=== PATIENT | female | born 1985 | race Caucasian/White ===

== ENCOUNTER → 2019-08-02 | Outpatient (CLI) | payer OTHER ==
--- NOTE | 2019-08-02 10:47 | US ---
EXAMINATION TYPE: Transabdominal DATE OF EXAM: 08/02/2019 9:55 AM COMPARISON: NONE CLINICAL HISTORY: Z36 confirm dates. Dates, no previous ultrasound EXAM PERFORMED: Transabdominal (TA) EXAM MEASUREMENTS: GESTATIONAL AGE / DATING Dates by LMP: (11 weeks/6 days) EDC: 02/15/2020 Dates by Current Scan for: (12 weeks/0 days) EDC: 02/14/2020 MATERNAL ANATOMY Uterus: 13.5 x 9.4 x 6.6 cm Right Ovary: 2.6 x 1.9 x 1.9 cm Left Ovary: 3.0 x 1.9 x 1.6 cm Post CDS / Adnexa: No free fluid Presence of free fluid: no Presence of corpus luteal cyst: no Presence of subchorionic bleed: no GESTATION / SURVEY CRL: 5.4 cm (12 weeks/0 days) MSD: Seen, not measured Yolk Sac (normal less than 6mm): Not visualized Heart Rate: 166 bpm Rhythm: Normal IUP: Viable IUP Date of LMP: 05/11/2019, G1 Beta HcG (if available): Not available at this time Single live IUP measuring 12 weeks 0 days IMPRESSION: Single live intrauterine with a current sonographic age of 12 weeks and 0 days and estimated date of delivery of 02/14/2020, concordant with menstrual age.
== END | disposition home or self-care (01) ==
LOC: RADUSWWP 09:39
PROVIDERS: ATTEND Obstetrics & Gynecology
DX: Z36.89 Encounter for other specified antenatal screening (principal)
CPT/HCPCS: 76801

== ENCOUNTER 2020-02-08 10:01 | Inpatient (IN) | payer OTHER ==
[2020-02-07 13:45] VITALS: BMI 30.1
--- NOTE | 2020-02-07 18:40 | P.HPOB ---
History of Present Illness H&P Date: 02/07/20 Chief Complaint: Scheduled primary section, macrosomia This is a 34 y.o. female, 1, para 0, with an estimated date of confinement of 02/15/2020, estimated gestational age of 39 weeks, who presents for primary low transverse section due to macrosomia. Her US on 02/06/2020 showed estimated weight of 9#3oz (greater than 90th percentile). She was counselled on risk of possible shoulder dystocia and wishes to proceed with primary section. labs: Hepatitis B surface antigen-neg RPR-NR Rubella-immune Blood type-B+ Antibody screen-neg HIV-NR Hemoglobin-11.9 Random glucose-86 GC/trich-neg Chlamydia-positive, ESTUARDO-neg US-EIF noted, seen at [facility] GBS-neg 1 hr. GTT-150 3 hr. GTT-1 hr. value high, all others normal OB Hx: . Hx 2 adopted girls. Firmware Developer Hx: Hx of chlamydia treated early in . Social Hx: Single. Boyfriend. Works as a cashier greeter. Review of Systems Constitutional: Denies chills, Denies fever Eyes: denies blurred vision, denies pain Ears, nose, mouth and throat: Denies headache, Denies sore throat Cardiovascular: Denies chest pain, Denies shortness of breath Respiratory: Denies cough Gastrointestinal: Reports abdominal pain (irregular contractions) Genitourinary: Reports pelvic pain, Reports Musculoskeletal: Reports low back pain Integumentary: Denies pruritus, Denies rash Neurological: Denies numbness, Denies weakness Psychiatric: Denies anxiety, Denies depression Past Medical History Past Medical History: No Reported History History of Any Multi-Drug Resistant Organisms: None Reported Past Surgical History: No Surgical Hx Reported Additional Past Surgical History / Comment(s): EGD Past Anesthesia/Blood Transfusion Reactions: Motion Sickness Past Psychological History: No Psychological Hx Reported Smoking Status: Never smoker Past Alcohol Use History: None Reported Past Drug Use History: None Reported - Past Family History Mother Family Medical History: Cancer Additional Family Medical History / Comment(s): BREAST Medications and Allergies Home Medications Medication Instructions Recorded Confirmed Type Pnv,Calcium 72/Iron/Folic Acid 1 each PO DAILY 02/07/20 02/08/20 History [ Plus Tablet] Allergies Allergy/AdvReac Type Severity Reaction Status Date / Time No Known Allergies Allergy Verified 02/07/20 13:29 Exam Osteopathic Statement: *. No significant issues noted on an osteopathic structural exam other than those noted in the History and Physical/Consult. Intake and Output 02/07/20 02/07/20 02/07/20 06:59 14:59 22:59 Other: Weight 89.811 kg HEENT: within normal limits Heart: regular rate and rhythm Lungs: clear to auscultation bilaterally Abdomen: Cervix: 1 cm/60%/-2 heart tones: 120's by doppler Extremities: neg. Lauren's Results Result Diagrams: 02/08/20 10:20 Assessment and Plan (1) 39 weeks gestation of Current Visit: No Status: Acute Code(s): Z3A.39 - 39 WEEKS GESTATION OF SNOMED Code(s): 74798699 (2) Macrosomia Current Visit: No Status: Acute Code(s): P08.0 - EXCEPTIONALLY LARGE BABY SNOMED Code(s): 83968440 Plan: Proceed with primary low transverse section. I have discussed the risks, benefits, and alternative therapies for the above- mentioned procedure and for both sedation/anesthesia as well as necessary blood products administration, if indicated, as they pertain to this patient. The patient has indicated her understanding and acceptance of the risks and procedures discussed.
[2020-02-08] MEDS ORDERED: CITRIC ACID-SODIUM CITRATE 15 ML CUP PO ONE (10:03)
[2020-02-08] MEDS ORDERED: LIDOCAINE 1% (10MG/ML) FOR IV START INTRADERMA PRN (10:03)
[2020-02-08] MEDS ORDERED: LACTATED RINGERS 1,000 ML IV ONE (10:03)
[2020-02-08] MEDS: LACTATED RINGERS 1,000 ML IV SCH ×3 (10:36→17:31)
[2020-02-08 10:49] LABS: Basophils % (A) 0 %; Eosinophils # (A) 0.1 k/uL (0-0.7); Eosinophils % (A) 1 %; HCT 36.5 % (34.0-46.0); HGB 11.7 gm/dL (11.4-16.0); Lymphocytes # (A) 1.8 k/uL (1.0-4.8); Lymphocytes % (A) 23 %; MCH 30.6 pg (25.0-35.0); MCV 95.7 fL (80.0-100.0); Mean Platelet Volume 12.8; Monocytes # (A) 0.5 k/uL (0-1.0); Monocytes % (A) 7 %; Neutrophils # (A) 4.8 k/uL (1.3-7.7); Neutrophils % (A) 64 %; Platelet Count 166 k/uL (150-450); RBC 3.81 m/uL (3.80-5.40); RDW 13.1 % (11.5-15.5); WBC 7.6 k/uL (3.8-10.6)
[2020-02-08 11:05] LABS: Large Platelets Present
[2020-02-08] MEDS ORDERED: KETOROLAC 30 MG/ML 1 ML VIAL ONE (12:24)
[2020-02-08] MEDS ORDERED: OXYTOCIN 10 UNIT/ML 1 ML VIAL ONE (12:24)
[2020-02-08] MEDS ORDERED: NALBUPHINE 10 MG/ML (1 ML AMP) ONE (12:24)
[2020-02-08] MEDS ORDERED: ONDANSETRON 4 MG/2 ML VIAL ONE (12:24)
[2020-02-08] MEDS ORDERED: DEXAMETHASONE SOD PHOS (MDV) 100 MG/10 ML VIAL ONE (12:24)
[2020-02-08] MEDS ORDERED: fentaNYL (PF) 50 MCG/ML 2 ML AMP ONE (12:24)
[2020-02-08] MEDS ORDERED: KETOROLAC 30 MG/ML 1 ML VIAL IVP PRN (13:06)
[2020-02-08] MEDS ORDERED: ONDANSETRON 4 MG/2 ML VIAL IVP PRN ×2 (13:06→15:27)
[2020-02-08] MEDS ORDERED: NALOXONE 0.4 MG/ML 1 ML VIAL IV PRN ×2 (13:06→15:27)
[2020-02-08] MEDS ORDERED: diphenhydrAMINE 50 MG/ML 1 ML VIAL IVP PRN ×3 (13:06→15:27)
[2020-02-08] MEDS ORDERED: HYDROmorphone 0.5 MG/0.5 ML SYRINGE IVP PRN (13:06)
--- NOTE | 2020-02-08 13:40 | P.OP ---
Date of Procedure: 02/08/20 Preoperative Diagnosis: 1. Intrauterine at 39-0/7 weeks. 2. macrosomia. Postoperative Diagnosis: Same Plus large left ovarian solid mass Procedure(s) Performed: Primary low transverse section Left oophorectomy Anesthesia: spinal (Duramorph) Surgeon: Heike Enriquez Graphics Production Specialist #1: Ronn Bettencourt Estimated Blood Loss (ml): 500 Pathology: other (Left ovary) Condition: stable Disposition: floor Indications for Procedure: This is a 34-year-old female 1 para 0 at 39-0/7 weeks who presents for scheduled primary section secondary to macrosomia. I have discussed the risks, benefits, and alternative therapies for the above- mentioned procedure and for both sedation/anesthesia as well as necessary blood products administration, if indicated, as they pertain to this patient. The patient has indicated her understanding and acceptance of the risks and procedures discussed. Operative Findings: A viable male is noted in the vertex presentation with scores of 9 at 1 minute and 9 at 5 minutes and weight is 8 lbs. 7 oz. Left ovary does have a very large solid mass noted at approximate 5-6 cm. Right ovary appears normal both tubes appear normal. Description of Procedure: The patient is taken to the operating room where she is placed in the dorsal supine position with leftward tilt after spinal Duramorph anesthesia is given. She is prepped and draped in the normal sterile fashion. Skin was tested and found to be adequately anesthetized. A Pfannenstiel skin incision was made with a scalpel. A second knife was used to carry the incision down to the underlying layer of fascia. The fascia was nicked in the midline with a scalpel and then extended laterally bilaterally with Deras scissors. The anterior lip of the fascia was grasped with 2 Ondina clamps and then dissected off the underlying rectus muscle in the midline with Deras scissors. The inferior aspect of the fascial incision was grasped with 2 Ondina clamps and dissected off the underlying rectus muscle and the midline with Deras scissors. Next the peritoneum layer was tented up with 2 hemostats and then entered sharply with the scalpel. The incision is extended superiorly and inferiorly with Metzenbaum scissors. Next a DeLee retractor is placed. The vesicouterine peritoneum is entered sharply with Metzenbaum scissors and extended laterally bilaterally with Metzenbaum scissors and then the bladder flap is pushed inferiorly. The lower uterine segment is incised in transverse fashion with the scalpel and then bluntly entered with a hemostat. Clear fluid is noted. The incision was then extended laterally bilaterally with 2 fingers. Next the infant's head is delivered through the incision with the help of 1 pull from a vacuum. Nose and mouth are bulb suctioned. The remainder of the is easily delivered and placed on mother's abdomen. Cord is clamped and cut. is taken to warmer by nursing staff. Uterine fundus is gently massaged and placenta is delivered manually. Uterus is exteriorized and cleared of all clots and debris. Uterine incision is closed with 0 Vicryl suture in a running locked fashion. A second layer of 0 Vicryl suture is used in a running fashion for hemostasis. Once adequate hemostasis as assured, the vesicouterine peritoneum is reapproximated with 2-0 Vicryl suture in a running fashion. Posterior cul-de-sac is suctioned of all clots and debris. At this time a large firm mass is noted on the left ovary. The right ovary appears normal. The patient was questioned regarding removal of the left ovary. We were able to lower the drapes so that she could see the left ovary and did give consent to remove her left ovary verbally. Hemostats were used to clamp across the uterine ovarian ligament and mesosalpinx. Deras scissors were used to remove the specimen. The pedicles were then sutured with 0 Vicryl suture in Elkin transfixion stitches and then the entire pedicle was free tied with an 0 Vicryl stitch. Excellent hemostasis was noted. Uterus is returned to the abdomen. Incision is noted to be hemostatic. Peritoneal layer is closed with 0 Vicryl suture in a running fashion. Muscle layer is reapproximated with 0 Vicryl suture in interrupted fashion. Fascia layer is then closed with 0 PDS suture with 2 sutures meeting in the midline and the knots buried in either side and in the midline. The subcutaneous tissue was then closed with 2-0 Vicryl suture. Skin layer was then closed with jonny. All sponge and needle counts are correct. The patient is taken to recovery room in stable condition.
[2020-02-08] MEDS ORDERED: HYDROcodone/APAP 5-325MG 1 EACH TAB PO PRN (15:27)
[2020-02-08] MEDS ORDERED: METOCLOPRAMIDE 5 MG/ML 2 ML VIAL IVP PRN (15:27)
[2020-02-08] MEDS ORDERED: HYDROcodone/APAP 7.5-325MG 1 EACH TAB PO PRN (15:27)
[2020-02-08] MEDS ORDERED: diphenhydrAMINE 50 MG CAP PO PRN (15:27)
[2020-02-08] MEDS ORDERED: OXYTOCIN 20 UNITS/1000 ML NS 1,000 ML IV SCH (15:27)
[2020-02-08] MEDS ORDERED: diphenhydrAMINE 25 MG CAP PO PRN (15:27)
[2020-02-08] MEDS ORDERED: LANOLIN CREAM 5 GM TUBE TOPICAL PRN (15:27)
[2020-02-08] MEDS ORDERED: ZOLPIDEM 5 MG TAB PO PRN (15:27)
[2020-02-08] MEDS ORDERED: ACETAMINOPHEN TAB 325 MG TAB PO PRN (15:27)
[2020-02-08] MEDS ORDERED: SIMETHICONE 80 MG CHEWABLE PO PRN (15:27)
[2020-02-08] MEDS: SENNOSIDES-DOCUSATE SODIUM 1 EACH TAB PO SCH (20:24)
[2020-02-08] MEDS: KETOROLAC 30 MG/ML 1 ML VIAL IVP PRN (23:11)
[2020-02-09] MEDS: LACTATED RINGERS 1,000 ML IV SCH (03:50)
--- NOTE | 2020-02-09 07:07 | P.PN ---
Progress Note - Text Progress Note Date: 02/09/20 Postoperative day 1 status post section under spinal anesthesia, and i ntrathecal morphine given for postoperative analgesia, patient doing well, there is no anesthesia related complications, Patient had no headache, vital signs stable , Assessment and plan= postop day 1 status post , doing well there is no anesthesia related complication.
[2020-02-09] MEDS: KETOROLAC 30 MG/ML 1 ML VIAL IVP PRN (07:31)
[2020-02-09] MEDS: SENNOSIDES-DOCUSATE SODIUM 1 EACH TAB PO SCH ×2 (07:33→20:35)
[2020-02-09 08:05] LABS: Basophils % (A) 0 %; Eosinophils % (A) 0 %; HCT 32.9 % (34.0-46.0); HGB 10.3 gm/dL (11.4-16.0); Lymphocytes # (A) 1.8 k/uL (1.0-4.8); Lymphocytes % (A) 21 %; MCH 30.4 pg (25.0-35.0); MCHC 31.4 g/dL (31.0-37.0); MCV 96.7 fL (80.0-100.0); Mean Platelet Volume 12.3; Monocytes # (A) 0.5 k/uL (0-1.0); Monocytes % (A) 6 %; Neutrophils # (A) 6.3 k/uL (1.3-7.7); Neutrophils % (A) 71 %; Platelet Count 157 k/uL (150-450); WBC 8.9 k/uL (3.8-10.6)
--- NOTE | 2020-02-09 09:19 | P.PNOBGPC ---
Subjective - Subjective Principal diagnosis: Status post primary section with left oophorectomy POD #1 Interval history: Patient is doing well. Her pain is fairly well controlled. She is passing flatus. She is tolerating regular diet. She is breast-feeding. Lochia is decreasing. Patient reports: Reports appetite normal, Reports voiding normally, Reports pain well controlled, Reports ambulating normally [place]: doing well, nursing well Objective - Vital Signs Latest vital signs: Vital Signs Temp Pulse Resp BP Pulse Ox 02/09/20 08:00 97.9 F 51 L 16 117/76 98 02/09/20 03:57 98.0 F 65 16 109/68 98 02/08/20 23:24 97.5 F L 51 L 16 110/62 97 02/08/20 22:00 16 97 02/08/20 20:00 97.8 F 67 16 110/60 96 02/08/20 18:06 98 02/08/20 18:00 17 02/08/20 16:06 60 17 02/08/20 15:23 98.1 F 59 L 17 113/65 02/08/20 14:48 98.2 F 63 17 119/59 98 02/08/20 14:23 98.0 F 66 17 114/68 99 02/08/20 14:07 70 18 111/58 02/08/20 14:03 17 98 02/08/20 13:53 80 18 127/62 98 02/08/20 13:38 74 18 118/63 98 02/08/20 13:23 97.8 F 88 18 115/75 99 02/08/20 10:02 97.5 F L 82 16 114/80 100 Intake and Output 02/08/20 02/09/20 02/09/20 22:59 06:59 14:59 Output Total 425 250 Balance -425 -250 Output: Urine 425 250 Uretheral (Schumacher) 425 Other: # Voids 1 - Exam Extremities: Present: normal, edema (Trace). Absent: tenderness Abdomen: Present: normal appearance, soft. Absent: distention, tenderness Incision: Present: normal, dry, intact. Absent: erythematous Uterus: Present: normal, firm. Absent: tenderness - Labs Labs: Abnormal Lab Results - Last 24 Hours (Table) 02/09/20 Range/Units 06:48 RBC 3.40 L (3.80-5.40) m/uL Hgb 10.3 L (11.4-16.0) gm/dL Hct 32.9 L (34.0-46.0) % Assessment and Plan Assessment: Status post primary low transverse section with left oophorectomy postoperative day #1 (1) 39 weeks gestation of Current Visit: No Status: Acute Code(s): Z3A.39 - 39 WEEKS GESTATION OF SNOMED Code(s): 11953934 (2) Macrosomia Current Visit: No Status: Acute Code(s): P08.0 - EXCEPTIONALLY LARGE BABY SNOMED Code(s): 55711807 Plan: Continue with postoperative and care. Encouraged ambulation. Switched oral pain medication today. Dr. Salinas will be covering for me this weekend.
[2020-02-09 10:25] LABS: Large Platelets Present
[2020-02-09] MEDS: IBUPROFEN 600 MG TAB PO PRN ×2 (13:42→20:35)
[2020-02-10] MEDS: IBUPROFEN 600 MG TAB PO PRN ×2 (05:07→11:56)
[2020-02-10] MEDS: SENNOSIDES-DOCUSATE SODIUM 1 EACH TAB PO SCH (08:27)
--- NOTE | 2020-02-10 09:29 | P.DS ---
Providers Date of admission: 02/08/20 10:01 Expected date of discharge: 02/10/20 Attending physician: Heike Enriquez Primary care physician: Stated None - Discharge Diagnosis(es) (1) Status post primary low transverse section Current Visit: Yes Status: Acute Hospital Course: Patient presented for primary low transverse . She underwent this procedure without complication. Postoperatively her course has been uncomplicated. She denies nausea, vomiting, chest pain, shortness of breath or calf pain. Her incision is clean, dry, intact with jonny. She'll be discharged home postoperative day #2 in stable condition to follow-up with Dr. Enriquez in 1-2 weeks. Plan - Discharge Summary Discharge Rx Participant: Yes New Discharge Prescriptions: New Ibuprofen [Motrin] 600 mg PO Q6HR PRN #60 tab PRN Reason: Mild Pain Or Fever >= 100.5 HYDROcodone/APAP 5-325MG [[place] 5-325] 1 each PO Q4HR PRN #18 tab PRN Reason: Moderate Pain Continue Pnv,Calcium 72/Iron/Folic Acid [ Plus Tablet] 1 each PO DAILY Discharge Medication List Pnv,Calcium 72/Iron/Folic Acid [ Plus Tablet] 1 each PO DAILY 02/07/20 [History] HYDROcodone/APAP 5-325MG [[place] 5-325] 1 each PO Q4HR PRN #18 tab 02/09/20 [Rx] Ibuprofen [Motrin] 600 mg PO Q6HR PRN #60 tab 02/09/20 [Rx] Follow up Appointment(s)/Referral(s): Heike Enriquez DO [Doctor of Osteopathic Medicine] - 2 Weeks Activity/Diet/Wound Care/Special Instructions: Instructions 1. Do not begin any exercise program for 3 weeks. 2. Do not resume sexual relations for 3 weeks or longer if uncomfortable. 3. You may take tub baths or showers at any time. 4. You may use tampons if desired after 3 weeks. 5. Keep the area of episiotomy (stitches) clean and dry. 6. If you are not nursing, wear a good fitting, supportive bra during the day and limit fluid intake for at least 1 week to prevent breast engorgement. 7. Call the office, [phone], within the next week to make appointment for your 6 week checkup if it has not already been made. 8. Report any of the following occurrences to the doctor promptly: a. Heavy, excessive bleeding b. Chills, fever c. Burning or frequency of urination d. Pain or redness and breasts if nursing e. Increasing pain or swelling in episiotomy (stitches). In addition to the above instructions, the following additional should be followed: 1. No heavy lifting or straining (exercising) until after 6 week checkup. 2. Keep abdominal incision clean and dry: You may wear a dressing if more comfortable. 3. Make office appointment for 10 days after going home or as instructed by her doctor. Discharge Disposition: HOME SELF-CARE
[2020-02-10 12:12] VITALS: RESP 18
[2020-02-10 17:18] VITALS: BP 113/68; PULSE 65; TEMP 98.6
== END 2020-02-10 17:44 | disposition home or self-care (01) | DRG 788 ==
LOC: 4FBP 10:01
PROVIDERS: ADMIT Obstetrics & Gynecology; ATTEND Obstetrics & Gynecology
PROC: 0UT10ZZ Resection of Left Ovary, Open Approach (ICD-10-PCS; principal; 2020-02-08 12:00)
PROC: 10D00Z1 Extraction of Products of Conception, Low, Open Approach (ICD-10-PCS; principal; 2020-02-08 12:00)
DX: O36.63X0 Maternal care for excessive fetal growth, third trimester, not applicable or unspecified (principal); Z37.0 Single live birth; Z3A.39 39 weeks gestation of pregnancy; Z80.3 Family history of malignant neoplasm of breast
CPT/HCPCS: 85025; 86850; 86900; 86901

== ENCOUNTER 2020-10-12 15:02 | Emergency (ER) | payer OTHER ==
[2020-10-12 15:07] VITALS: TEMP 98.9
[2020-10-12 15:47] LABS: Basophils % (A) 1 %; Eosinophils # (A) 0.2 k/uL (0-0.7); Eosinophils % (A) 2 %; HCT 39.2 % (34.0-46.0); HGB 13.7 gm/dL (11.4-16.0); Lymphocytes # (A) 1.6 k/uL (1.0-4.8); Lymphocytes % (A) 21 %; MCHC 34.9 g/dL (31.0-37.0); MCV 91.7 fL (80.0-100.0); Mean Platelet Volume 8.5; Monocytes # (A) 0.5 k/uL (0-1.0); Monocytes % (A) 6 %; Neutrophils # (A) 5.5 k/uL (1.3-7.7); Neutrophils % (A) 70 %; Platelet Count 207 k/uL (150-450); RBC 4.27 m/uL (3.80-5.40); WBC 7.9 k/uL (3.8-10.6)
[2020-10-12 15:48] LABS: Appearance,Urine Clear (Clear); Bilirubin,Urine Negative (Negative); Blood,Urine Negative (Negative); Color,Urine Yellow; Glucose,Urine (UA) Negative (Negative); Ketones,Urine Negative (Negative); Leukocyte Esterase,Urine Negative (Negative); Nitrite,Urine Negative (Negative); Protein,Urine Trace (Negative); Urobilinogen,Urine <2.0 mg/dL (<2.0)
--- NOTE | 2020-10-12 15:49 | ED ---
Female Urogenital HPI - General Chief complaint: Vaginal Bleeding Stated complaint: 9 wks preg,vaginal bleeding Time Seen by Provider: 10/12/20 15:17 Source: patient Mode of arrival: ambulatory Limitations: no limitations - History of Present Illness Initial comments: Patient is a 35-year-old female presenting to the emergency Department with complaints of vaginal spotting for the past week as well as left-sided abdominal pain. She is currently 9-10 weeks , . Her DORR OPERATOR is Dr. Enriquez. She states that she has been spotting over the past week, thinks it is a darker color, but when she wipes she does notice a little bit of blood. She is been having no clots. She denies any lower abdominal pain but states that she has been having these intermittent left sided sharp pains that last for approximately 1 minute and then go away. She denies history of kidney stones. She denies any hematuria or dysuria. She denies any fever or chills, no nausea or vomiting. She has no further complaints at this time. Upon arrival to the ER, her vitals are stable. - Related Data Home Medications Medication Instructions Recorded Confirmed No Known Home Medications 10/12/20 10/12/20 Allergies Allergy/AdvReac Type Severity Reaction Status Date / Time No Known Allergies Allergy Verified 10/12/20 17:09 Review of Systems ROS Statement: Those systems with pertinent positive or pertinent negative responses have been documented in the HPI. ROS Other: All systems not noted in ROS Statement are negative. Past Medical History Past Medical History: No Reported History History of Any Multi-Drug Resistant Organisms: None Reported Past Surgical History: No Surgical Hx Reported Additional Past Surgical History / Comment(s): EGD Past Anesthesia/Blood Transfusion Reactions: Motion Sickness Past Psychological History: No Psychological Hx Reported Smoking Status: Never smoker Past Alcohol Use History: None Reported Past Drug Use History: None Reported - Past Family History Mother Family Medical History: Cancer Additional Family Medical History / Comment(s): BREAST General Exam - General Exam Comments Initial Comments: GENERAL: Patient is well-developed and well-nourished. Patient is nontoxic and in no acute distress. HEAD: Atraumatic, normocephalic. EYES: Pupils equal round and reactive to light, extraocular movements intact, sclera anicteric, conjunctiva are normal. Eyelids were unremarkable. ENT: TMs normal, nares patent, oropharynx clear without exudates. Moist mucous membranes. NECK: Normal range of motion, supple without lymphadenopathy or JVD. LUNGS: Unlabored respirations. Breath sounds clear to auscultation bilaterally and equal. No wheezes rales or rhonchi. HEART: Regular rate and rhythm without murmurs, rubs or gallops. ABDOMEN: Soft, nontender, normoactive bowel sounds. No guarding, no rebound. No masses appreciated. MUSCULOSKELETAL: Normal extremities with adequate strength and normal range of motion, no pitting or edema. No clubbing or cyanosis. NEUROLOGICAL: Patient is alert and oriented x 3. Motor and sensory are also intact. Cranial nerves II through XII grossly intact. Symmetrical smile. Normal speech, normal gait. PSYCH: Normal mood, normal affect. SKIN: Warm, Dry, normal turgor, no rashes or lesions noted. Limitations: no limitations External exam: Present: normal external exam Speculum exam: Present: cervical discharge (Very mild whitish discharge, no erythema, no bleeding). Absent: vaginal bleeding, foreign body By manual exam: Present: normal by manual exam Course Vital Signs 10/12/20 10/12/20 15:03 17:29 Temperature 98.9 F Pulse Rate 73 80 Respiratory 20 16 Rate Blood Pressure 115/75 116/71 O2 Sat by Pulse 100 100 Oximetry Medical Decision Making - Medical Decision Making Patient is a 35-year-old female, currently 9-10 weeks , presenting for vaginal spotting is 1 week. She's also been having intermittent left-sided sharp pains. No lower abdominal pain. , DORR OPERATOR is Dr. Enriquez. Labs show no acute process, kidney function is stable, hCG Quant is 148,000, urine shows no evidence of bacteria, rapid trichomoniasis is negative. Genital culture is still pending. Blood type is B+. Ultrasound shows a single live IUP with estimated gestational age of 11 weeks and 1 day. No other abnormalities were seen. Patient has been resting completely ER. I did discuss these findings with her. She is stable for discharge. She can follow up with Dr. Enriquez. She is in agreement with this plan of care. Return parameters were discussed with the patient she verbalized understanding. Case discussed with Dr. Winslow. - Lab Data Result diagrams: 10/12/20 15:35 10/12/20 15:39 Lab Results 10/12/20 10/12/20 10/12/20 Range/Units 15:35 15:35 15:39 WBC 7.9 (3.8-10.6) k/uL RBC 4.27 (3.80-5.40) m/uL Hgb 13.7 (11.4-16.0) gm/dL Hct 39.2 (34.0-46.0) % MCV 91.7 (80.0-100.0) fL MCH 32.0 (25.0-35.0) pg MCHC 34.9 (31.0-37.0) g/dL RDW 12.0 (11.5-15.5) % Plt Count 207 (150-450) k/uL MPV 8.5 Neutrophils % 70 % Lymphocytes % 21 % Monocytes % 6 % Eosinophils % 2 % Basophils % 1 % Neutrophils # 5.5 (1.3-7.7) k/uL Lymphocytes # 1.6 (1.0-4.8) k/uL Monocytes # 0.5 (0-1.0) k/uL Eosinophils # 0.2 (0-0.7) k/uL Basophils # 0.0 (0-0.2) k/uL Sodium (137-145) mmol/L Potassium (3.5-5.1) mmol/L Chloride (98-107) mmol/L Carbon Dioxide (22-30) mmol/L Anion Gap mmol/L BUN (7-17) mg/dL Creatinine (0.52-1.04) mg/dL Est GFR (CKD-EPI)AfAm (>60 ml/min/1.73 sqM) Est GFR (CKD-EPI)NonAf (>60 ml/min/1.73 sqM) Glucose (74-99) mg/dL Calcium (8.4-10.2) mg/dL Total Bilirubin (0.2-1.3) mg/dL AST (14-36) U/L ALT (4-34) U/L Alkaline Phosphatase (38-126) U/L Total Protein (6.3-8.2) g/dL Albumin (3.5-5.0) g/dL HCG, Quant mIU/mL Urine Color Yellow Urine Appearance Clear (Clear) Urine pH 6.0 (5.0-8.0) Ur Specific [place] 1.030 (1.001-1.035) Urine Protein Trace H (Negative) Urine Glucose (UA) Negative (Negative) Urine Ketones Negative (Negative) Urine Blood Negative (Negative) Urine Nitrite Negative (Negative) Urine Bilirubin Negative (Negative) Urine Urobilinogen <2.0 (<2.0) mg/dL Ur Leukocyte Esterase Negative (Negative) Trichomonas Ag (Rapid) (Negative) Blood Type B Positive Blood Type Recheck B Pos Bld Type Recheck Status No 10/12/20 10/12/20 Range/Units 15:39 15:39 WBC (3.8-10.6) k/uL RBC (3.80-5.40) m/uL Hgb (11.4-16.0) gm/dL Hct (34.0-46.0) % MCV (80.0-100.0) fL MCH (25.0-35.0) pg MCHC (31.0-37.0) g/dL RDW (11.5-15.5) % Plt Count (150-450) k/uL MPV Neutrophils % % Lymphocytes % % Monocytes % % Eosinophils % % Basophils % % Neutrophils # (1.3-7.7) k/uL Lymphocytes # (1.0-4.8) k/uL Monocytes # (0-1.0) k/uL Eosinophils # (0-0.7) k/uL Basophils # (0-0.2) k/uL Sodium 136 L (137-145) mmol/L Potassium 4.1 (3.5-5.1) mmol/L Chloride 106 (98-107) mmol/L Carbon Dioxide 24 (22-30) mmol/L Anion Gap 6 mmol/L BUN 9 (7-17) mg/dL Creatinine 0.48 L (0.52-1.04) mg/dL Est GFR (CKD-EPI)AfAm >90 (>60 ml/min/1.73 sqM) Est GFR (CKD-EPI)NonAf >90 (>60 ml/min/1.73 sqM) Glucose 90 (74-99) mg/dL Calcium 9.6 (8.4-10.2) mg/dL Total Bilirubin 0.4 (0.2-1.3) mg/dL AST 18 (14-36) U/L ALT 14 (4-34) U/L Alkaline Phosphatase 58 (38-126) U/L Total Protein 7.1 (6.3-8.2) g/dL Albumin 4.2 (3.5-5.0) g/dL HCG, Quant 370497.0 mIU/mL Urine Color Urine Appearance (Clear) Urine pH (5.0-8.0) Ur Specific [place] (1.001-1.035) Urine Protein (Negative) Urine Glucose (UA) (Negative) Urine Ketones (Negative) Urine Blood (Negative) Urine Nitrite (Negative) Urine Bilirubin (Negative) Urine Urobilinogen (<2.0) mg/dL Ur Leukocyte Esterase (Negative) Trichomonas Ag (Rapid) Negative (Negative) Blood Type Blood Type Recheck Bld Type Recheck Status Disposition Clinical Impression: Vaginal bleeding during Disposition: HOME SELF-CARE Condition: Stable Instructions (If sedation given, give patient instructions): Non-Threatening First Trimester Vaginal Bleed (ED) Additional Instructions: Please return to the Emergency Department if symptoms worsen or any other concerns. Follow-up with your DORR OPERATOR as discussed. Is patient prescribed a controlled substance at d/c from ED?: No Referrals: None,Stated [Primary Care Provider] - 1-2 days Heike Enriquez DO [Doctor of Osteopathic Medicine] - 1-2 days
[2020-10-12 15:58] LABS: ALT 14 U/L (4-34); AST 18 U/L (14-36); African American GFR (CKD) >90 (>60 ml/min/1.73 sqM); Albumin 4.2 g/dL (3.5-5.0); Alkaline Phosphatase 58 U/L (38-126); Anion Gap 6 mmol/L; Blood Urea Nitrogen 9 mg/dL (7-17); Calcium 9.6 mg/dL (8.4-10.2); Carbon Dioxide 24 mmol/L (22-30); Chloride 106 mmol/L (98-107); Glucose 90 mg/dL (74-99); Non-African American GFR(CKD) >90 (>60 ml/min/1.73 sqM); Potassium 4.1 mmol/L (3.5-5.1); Sodium 136 mmol/L (137-145); Total Bilirubin 0.4 mg/dL (0.2-1.3); Total Protein 7.1 g/dL (6.3-8.2)
--- NOTE | 2020-10-12 17:20 | US ---
EXAMINATION TYPE: Transabdominal DATE OF EXAM: 10/12/2020 4:43 PM COMPARISON: NONE CLINICAL HISTORY: spotting, pain. EXAM PERFORMED: Transabdominal (TA) EXAM MEASUREMENTS: GESTATIONAL AGE / DATING Physician Established: Not yet established Dates by LMP: 07/29/2020 (10 weeks/5 days) EDC: 05/05/2021 Dates by First Scan: No previous this is first scan Dates by Current Scan for: (11 weeks/1 days) EDC: 05/02/2021 MATERNAL ANATOMY Uterus: 10.3 x 7.3 x 8.9 cm Right Ovary: 3.9 x 2.1 x 4.3 cm Left Ovary: surgically absent per patient history of oopherectomy. Post CDS / Adnexa: wnl Presence of free fluid: none = GESTATION / SURVEY CRL: 4.4 cm (11 weeks/1 days) Yolk Sac (normal less than 6mm): not seen Heart Rate: 160 bpm Rhythm: Normal IUP: Viable IUP Date of LMP: 07/29/2020 Beta HcG (if available): not available Viable IUP that correlates with patient's LMP. Patient states history of prior oophorectomy during C section, unsure which one. Normal right ovary seen during exam, presuming left ovary removed. IMPRESSION: Single live intrauterine with estimated gestational age of 11 weeks 1 day and GERONIMO of 2020.
[2020-10-12 17:30] VITALS: BP 116/71; PULSE 80; RESP 16
== END 2020-10-12 17:30 | disposition home or self-care (01) ==
LOC: EC 15:02
DX: O20.9 Hemorrhage in early pregnancy, unspecified (principal); Z3A.11 11 weeks gestation of pregnancy; Z90.721 Acquired absence of ovaries, unilateral
CPT/HCPCS: 36415; 76801; 80053; 81003; 84702; 85025; 86900; 86901; 87070; 87491; 87591; 87808; 99284

== ENCOUNTER 2021-04-28 06:12 | Inpatient (IN) | payer OTHER ==
[2021-04-23 13:29] VITALS: BMI 31.0
--- NOTE | 2021-04-27 19:54 | P.HPOB ---
History of Present Illness H&P Date: 04/27/21 Chief Complaint: Scheduled repeat section This is a 35 y.o. female, 2, para 1, with an estimated date of confinement of 05/05/2021, estimated gestational age of 39 weeks, who presents for scheduled repeat section. She has good movement and irregular contractions. labs: Hepatitis B surface antigen-neg RPR-NR Rubella-immune Blood type-B+ Antibody screen-neg HIV-NR Hemoglobin-11.5 Toxoplasma-neg Random glucose-83 1 hr. GTT-184; 3 hr. GTT-normal GBS-positive OB Hx: . History of 1 previous (elective). Loss Control Representative Hx: Hx of chlamydia, treated. Social Hx: Single. Works full-time as service bar cashier. Review of Systems Constitutional: Denies chills, Denies fever Eyes: denies blurred vision, denies pain Ears, nose, mouth and throat: Denies headache, Denies sore throat Cardiovascular: Denies chest pain, Denies shortness of breath Respiratory: Denies cough Gastrointestinal: Reports abdominal pain (irregular ctxs) Genitourinary: Reports pelvic pain, Reports Musculoskeletal: Reports low back pain Integumentary: Denies pruritus, Denies rash Neurological: Denies numbness, Denies weakness Psychiatric: Denies anxiety, Denies depression Past Medical History Past Medical History: No Reported History History of Any Multi-Drug Resistant Organisms: None Reported Past Surgical History: Section Additional Past Surgical History / Comment(s): EGD Past Anesthesia/Blood Transfusion Reactions: Motion Sickness Past Psychological History: No Psychological Hx Reported Smoking Status: Never smoker Past Alcohol Use History: None Reported Past Drug Use History: None Reported - Past Family History Mother Family Medical History: Cancer Additional Family Medical History / Comment(s): BREAST Medications and Allergies Home Medications Medication Instructions Recorded Confirmed Type Pnv No.95/Ferrous Fum/Folic AC 1 each PO DAILY 04/23/21 04/23/21 History [ Multivitamin Tablet] Allergies Allergy/AdvReac Type Severity Reaction Status Date / Time No Known Allergies Allergy Verified 04/23/21 13:29 Exam Osteopathic Statement: *. No significant issues noted on an osteopathic structural exam other than those noted in the History and Physical/Consult. HEENT: within normal limits Heart: regular rate and rhythm Lungs: clear to auscultation bilaterally Abdomen: Cervix: closed/60%/-2 heart tone: 130's by doppler Extremities: neg. Lauren's.
[2021-04-28] MEDS ORDERED: LIDOCAINE 1% (10MG/ML) FOR IV START INTRADERMA PRN (06:31)
[2021-04-28] MEDS ORDERED: CITRIC ACID-SODIUM CITRATE 15 ML CUP PO ONE (06:31)
[2021-04-28] MEDS ORDERED: LACTATED RINGERS 1,000 ML IV ONE (06:31)
[2021-04-28 06:54] LABS: Basophils % (A) 0 %; Eosinophils # (A) 0.1 k/uL (0-0.7); Eosinophils % (A) 2 %; HCT 34.3 % (34.0-46.0); HGB 11.9 gm/dL (11.4-16.0); Lymphocytes # (A) 2.4 k/uL (1.0-4.8); Lymphocytes % (A) 28 %; MCH 30.8 pg (25.0-35.0); MCHC 34.7 g/dL (31.0-37.0); MCV 88.8 fL (80.0-100.0); Mean Platelet Volume 11.9; Monocytes # (A) 0.5 k/uL (0-1.0); Monocytes % (A) 6 %; Neutrophils # (A) 5.2 k/uL (1.3-7.7); Neutrophils % (A) 61 %; Platelet Count 214 k/uL (150-450); RBC 3.86 m/uL (3.80-5.40); RDW 14.5 % (11.5-15.5); WBC 8.6 k/uL (3.8-10.6)
--- NOTE | 2021-04-28 08:36 | P.OP ---
Date of Procedure: 04/28/21 Preoperative Diagnosis: 1. Intrauterine at 39-0/7 weeks. 2. History of previous section. Postoperative Diagnosis: Same Procedure(s) Performed: Repeat low transverse section Anesthesia: spinal (Duramorph) Surgeon: Heike Enriquez Training Administrator #1: Arielle Salinas Estimated Blood Loss (ml): 500 Pathology: none sent Condition: stable Disposition: floor Indications for Procedure: This is a 35-year-old female 2 para 1 at 39-0/7 weeks who presents for scheduled repeat section. She admits to good movement. She denies any regular contractions. She declines vaginal after . I have discussed the risks, benefits, and alternative therapies for the above- mentioned procedure and for both sedation/anesthesia as well as necessary blood products administration, if indicated, as they pertain to this patient. The patient has indicated her understanding and acceptance of the risks and procedures discussed. Operative Findings: A viable female infant is noted in the vertex presentation with scores of 9 at 1 minute and 9 at 5 minutes and infant weight of 7 lbs. 6 oz. Normal uterus tubes and ovaries are noted. Description of Procedure: The patient is taken to the operating room where she is placed in the dorsal supine position with leftward tilt after spinal Duramorph anesthesia is given. She is prepped and draped in the normal sterile fashion. Skin was tested and found to be adequately anesthetized. A Pfannenstiel skin incision was made with a scalpel through the previous laparotomy scar. A second knife was used to carry the incision down to the underlying layer of fascia. The fascia was nicked in the midline with a scalpel and then extended laterally bilaterally with Deras scissors. The anterior lip of the fascia was grasped with 2 Ondina clamps and then dissected off the underlying rectus muscle in the midline with Deras scissors. The inferior aspect of the fascial incision was grasped with 2 Ondina clamps and dissected off the underlying rectus muscle and the midline with Deras scissors. Next the peritoneum layer was tented up with 2 hemostats and then entered sharply with the scalpel. The incision is extended superiorly and inferiorly with Metzenbaum scissors. Next a DeLee retractor is placed. The vesicouterine peritoneum is entered sharply with Metzenbaum scissors and extended laterally bilaterally with Metzenbaum scissors and then the bladder flap is pushed inferiorly. The lower uterine segment is incised in transverse fashion with the scalpel and then bluntly entered with a hemostat. Light m econium fluid is noted. The incision was then extended laterally bilaterally with 2 fingers. Next the 's head is delivered through the incision. Nose and mouth are bulb suctioned. The remainder of the is easily delivered and placed on mother's abdomen. Cord is clamped and cut. is taken to warmer by nursing staff. Uterine fundus is gently massaged and placenta is delivered manually. Uterus is exteriorized and cleared of all clots and debris. Uterine incision is closed with 0 Vicryl suture in a running locked fashion. A second layer of 0 Vicryl suture is used in a running fashion for hemostasis. Once adequate hemostasis as assured, the vesicouterine peritoneum is reapproximated with 2-0 Vicryl suture in a running fashion. Posterior cul-de-sac is suctioned of all clots and debris. Uterus is returned to the abdomen. Incision is noted to be hemostatic. Peritoneal layer is closed with 0 Vicryl suture in a running fashion. Muscle layer is reapproximated with 0 Vicryl suture in interrupted fashion. Fascia layer is then closed with 0 PDS suture with 2 sutures meeting in the midline and the knots buried in either side and in the midline. The subcutaneous tissue was then closed with 2-0 Vicryl suture. Skin layer was then closed with jonny. All sponge and needle counts are correct. The patient is taken to recovery room in stable condition.
[2021-04-28] MEDS ORDERED: LANOLIN CREAM 5 GM TUBE TOPICAL PRN (09:05)
[2021-04-28] MEDS ORDERED: diphenhydrAMINE 25 MG CAP PO PRN (09:05)
[2021-04-28] MEDS ORDERED: HYDROmorphone 0.2 MG/1 ML SYRINGE IVP PRN (09:05)
[2021-04-28] MEDS ORDERED: HYDROmorphone 1 MG/ML 1 ML SYRINGE IVP PRN (09:05)
[2021-04-28] MEDS ORDERED: diphenhydrAMINE 50 MG CAP PO PRN (09:05)
[2021-04-28] MEDS ORDERED: ZOLPIDEM 5 MG TAB PO PRN (09:05)
[2021-04-28] MEDS ORDERED: diphenhydrAMINE 50 MG/ML 1 ML VIAL IVP PRN ×2 (09:05)
[2021-04-28] MEDS ORDERED: METOCLOPRAMIDE 5 MG/ML 2 ML VIAL IVP PRN (09:05)
[2021-04-28] MEDS ORDERED: NALOXONE 0.4 MG/ML 1 ML VIAL IV PRN (09:05)
[2021-04-28] MEDS ORDERED: ONDANSETRON 4 MG/2 ML VIAL IVP PRN (09:05)
[2021-04-28] MEDS ORDERED: OXYTOCIN 30 UNITS/500 ML NS 30 UNIT in SALINE 1 500ML.BAG IV SCH (09:05)
[2021-04-28] MEDS: LACTATED RINGERS 1,000 ML IV SCH ×2 (09:12→18:06)
[2021-04-28] MEDS: SENNOSIDES-DOCUSATE SODIUM 1 EACH TAB PO SCH ×2 (10:16→19:43)
[2021-04-28] MEDS: ACETAMINOPHEN TAB 500 MG TAB PO SCH ×2 (12:34→18:06)
[2021-04-28] MEDS: KETOROLAC 15 MG/ML 1 ML VIAL IVP SCH (14:33)
[2021-04-28] MEDS: IBUPROFEN 600 MG TAB PO SCH ×2 (18:05→21:49)
[2021-04-29] MEDS: LACTATED RINGERS 1,000 ML IV SCH (00:27)
[2021-04-29] MEDS: ACETAMINOPHEN TAB 500 MG TAB PO SCH ×4 (00:27→17:06)
[2021-04-29] MEDS: KETOROLAC 15 MG/ML 1 ML VIAL IVP SCH ×2 (02:17→06:24)
[2021-04-29] MEDS: IBUPROFEN 600 MG TAB PO SCH ×4 (02:17→21:30)
[2021-04-29 06:08] LABS: Basophils % (A) 0 %; Eosinophils # (A) 0.1 k/uL (0-0.7); Eosinophils % (A) 2 %; HCT 32.9 % (34.0-46.0); Lymphocytes # (A) 1.6 k/uL (1.0-4.8); Lymphocytes % (A) 20 %; MCH 30.5 pg (25.0-35.0); MCHC 33.3 g/dL (31.0-37.0); MCV 91.7 fL (80.0-100.0); Mean Platelet Volume 11.4; Monocytes # (A) 0.4 k/uL (0-1.0); Monocytes % (A) 5 %; Neutrophils # (A) 5.5 k/uL (1.3-7.7); Neutrophils % (A) 71 %; Platelet Count 165 k/uL (150-450); RBC 3.59 m/uL (3.80-5.40); RDW 14.4 % (11.5-15.5); WBC 7.8 k/uL (3.8-10.6)
--- NOTE | 2021-04-29 08:43 | P.PNOBGPC ---
Subjective - Subjective Principal diagnosis: Status post repeat low transverse section postoperative day #1 Interval history: She was doing well. She is ambulating. She is tolerating regular diet. She is not passing flatus or bowel movement yet. She has been urinating without diff iculty. Her pain is well-controlled at this time. She is bottle feeding. Patient reports: Reports appetite normal, Reports voiding normally, Reports pain well controlled, Reports ambulating normally : doing well, bottle feeding Objective - Vital Signs Latest vital signs: Vital Signs Temp Pulse Resp BP Pulse Ox 04/29/21 04:00 98.5 F 59 L 16 106/65 04/29/21 00:00 98.1 F 71 16 110/67 99 04/28/21 20:00 98.1 F 63 16 106/63 98 04/28/21 16:30 97.4 F L 54 L 16 118/61 98 04/28/21 12:00 98.2 F 69 16 120/72 98 04/28/21 10:39 97.9 F 83 16 118/74 99 04/28/21 10:09 59 L 16 122/71 100 04/28/21 09:39 97.8 F 61 15 124/82 96 04/28/21 09:24 97.4 F L 66 14 123/75 100 04/28/21 09:09 97.2 F L 56 L 14 113/71 99 04/28/21 08:54 97.2 F L 61 15 131/67 100 Intake and Output 04/28/21 04/29/21 04/29/21 22:59 06:59 14:59 Output Total 1800 700 Balance -1800 -700 Output: Urine 1800 700 Uretheral (Schumacher) 1000 - Exam Extremities: Present: normal. Absent: tenderness Abdomen: Present: normal appearance, soft (Positive faint bowel sounds 4). Absent: distention, tenderness Incision: Present: normal, dry, intact. Absent: erythematous Uterus: Present: normal, firm. Absent: tenderness - Labs Labs: Abnormal Lab Results - Last 24 Hours (Table) 04/29/21 Range/Units 05:47 RBC 3.59 L (3.80-5.40) m/uL Hgb 11.0 L (11.4-16.0) gm/dL Hct 32.9 L (34.0-46.0) % Assessment and Plan Assessment: Status post repeat low transverse section postoperative day #1 Plan: Continue with postoperative care today. Patient is encouraged to ambulate. May shower.
[2021-04-29] MEDS: SENNOSIDES-DOCUSATE SODIUM 1 EACH TAB PO SCH ×2 (08:56→19:40)
--- NOTE | 2021-04-29 10:58 | P.PN ---
Progress Note - Text 04/29/21 718am 35-year-old female status post with spinal Duramorph. Patient seen and evaluated this morning for postop pain control , she has a VAS of 3. No complains of nausea vomiting, she does have mild pruritus side by the end of the day
[2021-04-30 01:00] VITALS: RESP 16
[2021-04-30] MEDS: ACETAMINOPHEN TAB 500 MG TAB PO SCH ×2 (03:30→06:16)
[2021-04-30] MEDS: IBUPROFEN 600 MG TAB PO SCH ×2 (03:32→09:29)
--- NOTE | 2021-04-30 08:03 | P.DS ---
Providers Date of admission: 04/28/21 06:12 Expected date of discharge: 04/30/21 Attending physician: Heike Enriquez Primary care physician: Stated None Hospital Course: This is a 35 y.o. female, 2, para 1, at 39 weeks who presented for repeat low transverse section. She delivered a viable female infant with Apgars of 9 at 1 minute and 9 at 5 minutes. Her postoperative course is uncomplicated. She is passing flatus and urinating. Pain is well controlled with ibuprofen. Vital signs are stable. Abdomen is soft with positive bowel sounds x 4. Extremities show negative Lauren's. Impression is status post repeat low transverse section, postoperative day #2. Plan is to discharge home. Routine postop and instructions are given. She will be given a prescription for ibuprofen. She is advised to follow up in the office in 1 week for postoperative check and in 6 weeks for check. She is advised to call if any questions. Procedures: Repeat low transverse section on 04/28/2021 Patient Condition at Discharge: Stable Plan - Discharge Summary Discharge Rx Participant: No New Discharge Prescriptions: New Ibuprofen [Motrin] 600 mg PO Q6H #60 tab No Action Pnv No.95/Ferrous Fum/Folic AC [ Multivitamin Tablet] 1 each PO DAILY Discharge Medication List Pnv No.95/Ferrous Fum/Folic AC [ Multivitamin Tablet] 1 each PO DAILY 04/23/21 [History] Ibuprofen [Motrin] 600 mg PO Q6H #60 tab 04/30/21 [Rx] Follow up Appointment(s)/Referral(s): Heike Enriquez DO [Doctor of Osteopathic Medicine] - 1 Week Activity/Diet/Wound Care/Special Instructions: Activity as tolerated. No heavy lifting. May shower but no tub baths. Discharge Disposition: HOME SELF-CARE
[2021-04-30 08:43] VITALS: BP 109/69; PULSE 87; TEMP 98.2
[2021-04-30] MEDS: SENNOSIDES-DOCUSATE SODIUM 1 EACH TAB PO SCH (09:28)
== END 2021-04-30 09:50 | disposition home or self-care (01) | DRG 788 ==
LOC: 4FBP 06:12
PROVIDERS: ADMIT Obstetrics & Gynecology; ATTEND Obstetrics & Gynecology
PROC: 10D00Z1 Extraction of Products of Conception, Low, Open Approach (ICD-10-PCS; principal; 2021-04-28 08:07)
DX: O34.211 Maternal care for low transverse scar from previous cesarean delivery (principal); Z37.0 Single live birth; Z3A.39 39 weeks gestation of pregnancy
CPT/HCPCS: 85025; 86850; 86900; 86901

== ENCOUNTER 2022-07-03 20:56 | Emergency (ER) | payer OTHER ==
[2022-07-03 21:10] VITALS: BP 133/83; PULSE 72; RESP 16; TEMP 98.3
--- NOTE | 2022-07-03 21:58 | ED ---
Recheck HPI - General Chief Complaint: Recheck/Abnormal Lab/Rx Stated Complaint: Testing Needed Time Seen by Provider: 07/03/22 21:46 Source: patient, RN notes reviewed Mode of arrival: ambulatory Limitations: no limitations - History of Present Illness Initial Comments: This is a 36-year-old female who presents to the emergency department requesting a urine drug screen and alcohol test. States that she missed her appointment at court to have these done today and would like them done here. Denies any current complaints otherwise. Denies any fevers, chills, sore throat, cough, dyspnea, chest pain, palpitations, abdominal pain, nausea, vomiting, diarrhea, back pain, or headaches. MD Complaint: other (UDS and ETOH level) - Related Data Home Medications Medication Instructions Recorded Confirmed Pnv No.95/Ferrous Fum/Folic AC 1 each PO DAILY 04/23/21 04/23/21 [ Multivitamin Tablet] Previous Rx's Medication Instructions Recorded Ibuprofen [Motrin] 600 mg PO Q6H #60 tab 04/30/21 Allergies Allergy/AdvReac Type Severity Reaction Status Date / Time No Known Allergies Allergy Verified 07/03/22 21:10 Review of Systems ROS Statement: Those systems with pertinent positive or pertinent negative responses have been documented in the HPI. ROS Other: All systems not noted in ROS Statement are negative. Past Medical History Past Medical History: No Reported History History of Any Multi-Drug Resistant Organisms: None Reported Past Surgical History: Section Additional Past Surgical History / Comment(s): EGD Past Anesthesia/Blood Transfusion Reactions: Motion Sickness Past Psychological History: No Psychological Hx Reported Smoking Status: Never smoker Past Alcohol Use History: None Reported Past Drug Use History: None Reported - Past Family History Mother Family Medical History: Cancer Additional Family Medical History / Comment(s): BREAST General Exam Limitations: no limitations General appearance: alert, in no apparent distress Head exam: Present: atraumatic, normocephalic, normal inspection Respiratory exam: Present: normal lung sounds bilaterally. Absent: respiratory distress, wheezes, rales, rhonchi, stridor Cardiovascular Exam: Present: regular rate, normal rhythm, normal heart sounds. Absent: systolic murmur, diastolic murmur, rubs, gallop, clicks Neurological exam: Present: alert, oriented X3, CN II-XII intact Psychiatric exam: Present: normal affect, normal mood Skin exam: Present: warm, dry, intact, normal color. Absent: rash Course Vital Signs 07/03/22 21:08 Temperature 98.3 F Pulse Rate 72 Respiratory 16 Rate Blood Pressure 133/83 O2 Sat by Pulse 100 Oximetry Medical Decision Making - Medical Decision Making This is a 36-year-old female who presents to the emergency department requesting ETOH level and UDS. Serum alcohol level and urine drug screen are negative. Advised that we cannot be sure that the court will accept these results, however we can provide them with the information if requested. Return precautions reviewed in depth, the patient is instructed to return to the emergency department with any new, worsening, or concerning symptoms. Patient verbalized understanding. This case was discussed in detail with the attending ED physician. Presentation, findings, and treatment plan discussed in detail as well. - Lab Data Lab Results 07/03/22 07/03/22 Range/Units 23:10 23:13 Urine Opiates Screen Not Detected (NotDetected) Ur Oxycodone Screen Not Detected (NotDetected) Urine Methadone Screen Not Detected (NotDetected) Ur Propoxyphene Screen Not Detected (NotDetected) Ur Barbiturates Screen Not Detected (NotDetected) U Tricyclic Antidepress Not Detected (NotDetected) Ur Phencyclidine Scrn Not Detected (NotDetected) Ur Amphetamines Screen Not Detected (NotDetected) U Methamphetamines Scrn Not Detected (NotDetected) U Benzodiazepines Scrn Not Detected (NotDetected) Urine Cocaine Screen Not Detected (NotDetected) U Marijuana (THC) Screen Not Detected (NotDetected) Serum Alcohol <10 mg/dL Disposition Clinical Impression: Encounter for drug screening Disposition: HOME SELF-CARE Additional Instructions: Return to the emergency department with any new, worsening, or concerning symptoms. Is patient prescribed a controlled substance at d/c from ED?: No Referrals: Jannet Parrish MD [Primary Care Provider] - 1-2 days
[2022-07-03 23:37] LABS: Amphetamine Screen,Urine Not Detected (NotDetected); Barbiturate Screen,Urine Not Detected (NotDetected); Benzodiazepines Screen,Urine Not Detected (NotDetected); Cocaine Screen,Urine Not Detected (NotDetected); Methadone Screen, Urine Not Detected (NotDetected); Opiate Screen,Urine Not Detected (NotDetected); Oxycodone Screen, Urine Not Detected (NotDetected); Phencyclidine Screen,Urine Not Detected (NotDetected); Tricyclic Antidepressant,Urine Not Detected (NotDetected); Urn Cannabinoid Scrn Not Detected (NotDetected)
== END 2022-07-04 00:05 | disposition home or self-care (01) ==
LOC: EC 20:56
DX: Z02.83 Encounter for blood-alcohol and blood-drug test (principal)
CPT/HCPCS: 36415; 80306; 99283; G0480; 80320